=== PATIENT | male | born 1955 | race Hispanic/Latino ===

== ENCOUNTER → 2018-01-21 | Outpatient (CLI) | payer OTHER ==
[~2018-01-21] VITALS: Ht 160 cm; Wt 77.1 kg
[~2018-01-21] MED LIST: AEC81 PO; ATOR10 PO; HYDR-3705 PO; LISI-617 PO; METF-444 PO; RANI150T7 PO; REGADENOSON 0.4 MG/5 ML PF SYG IVP SCH
== END | disposition home or self-care (01) ==
LOC: SHCH 07:56
PROVIDERS: ATTEND Internal Medicine Cardiovascular Disease
DX: R94.31 Abnormal electrocardiogram [ECG] [EKG] (principal); I10 Essential (primary) hypertension
CPT/HCPCS: 78452; 93017; 96374; A9500 ×2; J2785

== ENCOUNTER 2018-09-24 13:47 | Emergency (ER) | payer OTHER ==
[~2018-09-24 13:47] MED LIST changes: -REGADENOSON 0.4 MG/5 ML PF SYG IVP SCH
[2018-09-24] MEDS ORDERED: LIDOCAINE HCL 1% 20 ML VIAL ONE (14:03)
[2018-09-24] MEDS ORDERED: TETANUS/DIPHTHERIA TOXOID [ADULT] 0.5 ML VIAL IM ONE (14:04)
== END 2018-09-24 15:20 | disposition home or self-care (01) ==
LOC: EDH 13:47
DX: S61.511A Laceration without foreign body of right wrist, initial encounter (principal); E11.9 Type 2 diabetes mellitus without complications; E78.5 Hyperlipidemia, unspecified; I10 Essential (primary) hypertension; Z88.8 Allergy status to other drugs, medicaments and biological substances; W26.8XXA Contact with other sharp object(s), not elsewhere classified, initial encounter; Y93.89 Activity, other specified; Y92.89 Other specified places as the place of occurrence of the external cause; Y99.8 Other external cause status
CPT/HCPCS: 12032; 73130; 90471; 90714

== ENCOUNTER 2018-10-04 10:15 | Emergency (ER) | payer OTHER | END 2018-10-04 10:38 | disposition home or self-care (01) | LOC: EDH 10:15 | DX: S61.411D Laceration without foreign body of right hand, subsequent encounter (principal); E11.9 Type 2 diabetes mellitus without complications; E78.5 Hyperlipidemia, unspecified; I10 Essential (primary) hypertension; Z72.0 Tobacco use; Z88.8 Allergy status to other drugs, medicaments and biological substances; X58.XXXD Exposure to other specified factors, subsequent encounter | CPT/HCPCS: 99281 ==

== ENCOUNTER → 2019-10-06 | Outpatient (CLI) | payer OTHER | END | disposition home or self-care (01) | LOC: RAH 14:53 | PROVIDERS: ATTEND Internal Medicine Hematology & Oncology | DX: R22.1 Localized swelling, mass and lump, neck (principal) | CPT/HCPCS: 76536 ==

== ENCOUNTER 2020-03-12 17:28 | Emergency (ER) | payer OTHER ==
[2020-03-12 18:39] LABS: BASOPHILS % (AUTO) 0.4 % (0.0-5.0); EOSINOPHILS % (AUTO) 3.2 % (0.0-8.0); HEMATOCRIT 49.1 % (42-54); LYMPHOCYTES % (AUTO) 15.1 % (21.0-51.0); MEAN CORPUSCULAR HEMOGLOBIN 30.4 pg (27.0-33.0); MEAN CORPUSCULAR HGB CONC 34.4 g/dL (32.0-36.0); MEAN CORPUSCULAR VOLUME 88.3 fL (79-99); MONOCYTES % (AUTO) 5.1 % (3.0-13.0); NEUTROPHILS % (AUTO) 75.8 % (40.0-77.0); PLATELET COUNT (AUTO) 313 K/uL (130-400); RED BLOOD CELL COUNT(AUTO) 5.56 MIL/uL (4.50-6.20); RED CELL DISTRIBUTION WIDTH 12.5 % (11.0-15.5); WHITE BLOOD COUNT (AUTO) 10.1 K/uL (4.8-10.8)
[2020-03-12] MEDS ORDERED: DiphenhydrAMINE HCL 50 MG/ML VIAL ONE (18:48)
[2020-03-12] MEDS ORDERED: FAMOTIDINE/PF 20 MG/2 ML VIAL IV ONE (18:49)
[2020-03-12 18:50] LABS: CREATININE 1.2 mg/dL (0.5-1.5); POTASSIUM 3.5 mmol/L (3.5-5.1)
[2020-03-12 18:54] LABS: BILIRUBIN,TOTAL 0.3 mg/dL (0.2-1.0); TOTAL PROTEIN, SERUM 7.8 g/dL (6.0-8.3)
[2020-03-12] MEDS ORDERED: PREDNISONE 20 MG TABLET ONE (19:47)
== END 2020-03-12 20:02 | disposition home or self-care (01) ==
LOC: EDH 17:28
DX: L29.8 Other pruritus (principal); I10 Essential (primary) hypertension; E11.9 Type 2 diabetes mellitus without complications; E78.5 Hyperlipidemia, unspecified; Z88.8 Allergy status to other drugs, medicaments and biological substances; Z72.0 Tobacco use
CPT/HCPCS: 36415; 80053; 82550; 84484; 85025; 93005; 96374; 96375; 99284; J1200; J3490

== ENCOUNTER 2024-03-25 13:56 | Emergency (ER) | payer OTHER ==
[~2024-03-25] VITALS: Ht 157.5 cm; Wt 75.7 kg
[~2024-03-25 13:56] MED LIST changes: -LISI-617 PO; +LISI5TAB21 PO
[2024-03-25] MEDS: HYDROcodone/acetaMINOPHEN 10/325 MG TAB PO ONE (14:53)
[2024-03-25] MEDS: morPHINE 2 MG SYG IM ONE (16:23)
[2024-03-25 16:29] VITALS: TEMP 98
--- NOTE | 2024-03-25 17:36 | ERN ---
General Chief Complaint: Rib Pain Stated Complaint: LEFT RIB PAIN Time Seen by MD: 14:34 Time Seen by Midlevel: 14:34 Source: patient History of Present Illness Initial Comments Patient is a 68-year-old male with no significant past medical history presenting with left-sided chest wall pain after he fell and landed on tree. Patient states he was on a ladder three steps up cutting some branches when the branches made him uneasy and fell onto the branch of a tree hitting the left si de of his chest. Denies any loss of consciousness or head injury. Patient states he was able to continue working however this morning he woke up with a significant amount of pain. The pain is worse with movement of the upper torso. Denies any shortness of breath or any other symptoms at this time. Allergies: Coded Allergies: naproxen (Unverified Allergy, Unknown, 12/20/13) Home Meds Reported Medications Metformin HCl (Metformin HCl) 500 Mg Tablet, 500 MG PO BIDLUNCHDINNER, TAB 12/26/13 Hydrocodone/Acetaminophen (Vicodin 5-300 mg Tablet) 1 Each Tablet, 1 EACH PO Q8H PRN for PAIN, TAB 12/26/13 Lisinopril (Lisinopril) 5 Mg Tablet, 5 MG PO AM, TAB 12/20/13 Atorvastatin Calcium (LIPITOR) 20 Mg Tablet, 20 MG PO HS, TAB 12/20/13 Aspirin (ASPIRIN 81 MG ECTAB) 81 Mg Tablet.dr, 81 MG PO AM, TAB 12/20/13 Ranitidine HCl (Ranitidine HCl) 150 Mg Tablet, 150 MG PO AM, TAB 12/20/13 Past Medical History Past Medical History: Diabetes-Type II, High Cholesterol, Hypertension, TIA Past Surgical History: Other Surgical History Other: BACK SX R/T CA, RT KIDNEY TUMOR ROS Dictation CONSTITUTIONAL: Negative except for HPI HEAD/FACE: Negative except for HPI EENT: Negative except for HPI RESPIRATORY: Negative except for HPI GASTROINTESTINAL/ABDOMINAL: Negative except for HPI GENITOURINARY: Negative except for HPI MUSCULOSKELETAL: Negative except for HPI INTEGUMENTARY: Negative except for HPI NEUROLOGICAL/PSYCH: Negative except for HPI HEMATOLOGIC/LYMPHATIC: Negative except for HPI All Systems Negative, Except as noted above. 13 point review of systems assessed and all negative except for above. Physical Exam Physical Exam Dictation PHYSICAL EXAM: GENERAL: alert,, awake oriented x 3 HEENT: EOMI, Sclera non icteric, moist mucosa NECK: Supple, no JVD, trachea midline LUNGS: Clear breath sounds bilaterally. No wheezes HEART: Regular rate and rhythm. Normal S1 and S2, without murmurs ABD: Abdomen soft, nontender. Bowel sounds present MSK: Tenderness over the left lateral chest wall, pain is reproducible with movement and palpation NEURO: Alert and oriented to person, follows commands MDM MDM: Patient is a 68-year-old male with no significant past medical history presenting with left-sided chest wall pain after he fell and landed on tree. Patient states he was on a ladder three steps up cutting some branches when the branches made him uneasy and fell onto the branch of a tree hitting the left side of his chest. Denies any loss of consciousness or head injury. Patient states he was able to continue working however this morning he woke up with a significant amount of pain. The pain is worse with movement of the upper torso. Denies any shortness of breath or any other symptoms at this time. On physical examination patient is in no acute respiratory distress. O2 saturation is 98% on room air. Vital signs are stable. He has left lateral chest wall tenderness that is reproducible with movement and palpation. Chest x-ray with bilateral rib views was obtained and does not show any acute fracture. There was no evidence of a pneumothorax. Patient was given pain control in the emergency department and will be discharged home with supportive management. Differential diagnosis: Pneumothorax, rib fracture, chest wall contusion There are no social concerns with this patient. Prescription drug management Prescriptions will include: Tylenol and Motrin Medical management and examination interpretation discussions were had by me with other qualified healthcare professionals as indicated for the patient's care. ED Course Orders Procedure Category Date Status Time Hydrocodone/Apap PHA 03/25/24 Complete Tab ([place] 10) 15:00 Ribs Bilat [employer] Pa RAD 03/25/24 Resulted Chest 4+Vws 14:35 Morphine 2mg Syg PHA 03/25/24 Complete (Morphine 2mg Syg) 16:30 Current Medications Medications (Trade) Dose Ordered Sig/Meka Route PRN Reason Start Time Stop Time Status Last Admin Dose Admin Acetaminophen/ Hydrocodone Bitart (NORco 10) 1 tab ONCE ONCE PO 03/25/24 15:00 03/25/24 15:01 DC 03/25/24 14:53 Morphine Sulfate (morPHINE 2MG SYG) 2 mg ONCE ONCE IM 03/25/24 16:30 03/25/24 16:31 DC 03/25/24 16:23 Vital Signs Date Time Temp Pulse Resp B/P (MAP) Pulse Ox O2 Delivery O2 Flow Rate FiO2 03/25/24 17:46 78 20 131/74 98 Room Air* 0 21 03/25/24 16:29 98.1 71 18 141/80 98 Room Air* 0 03/25/24 14:37 98.8 78 20 143/83 98 Room Air* 0 03/25/24 13:58 97.9 85 16 136/90 98 Room Air 0 DX & DISP Disposition: Discharge Departure Impression: Primary Impression: Chest wall contusion Condition: Stable Additional Instructions: Your chest x-ray does not show any evidence of a fracture. Please follow up with your primary care doctor in 2-3 days for repeat evaluation. You may take Tylenol and Motrin for pain. Referrals: TRUPTI MEDRANO M.D. (PCP) Time of Disposition: 18:00 I have reviewed the case, and I agree with, Diagnosis and Plan ATTESTATION BY PHYSICIAN I PERFORMED THE SUBSTANTIVE PORTION OF THE VISIT. I HAVE REVIEWED AND PERSONALLY MADE AND APPROVED THE MANAGEMENT PLAN THAT IS DOCUMENTED IN THE NOTE BY MYSELF FOR THE A PP. I ACKNOWLEDGED FOR RESPONSIBILITY FOR THE PATIENT'S MANAGEMENT PLAN. LORE PETTY Mar 25, 2024 17:36 CRIS FENG NP Mar 25, 2024 18:10 GIOVANNI OSBORNE MD Mar 26, 2024 06:27
[2024-03-25 17:46] VITALS: BP 131/74; PULSE 78; RESP 20; O2SAT 98
[2024-03-25] MEDS ORDERED: ACET-2079 PO ×2 (18:02→18:07)
--- NOTE | 2024-03-26 00:28 | HMCIMG ---
RIBS BILAT [employer] PA CHEST 4+VWS HISTORY: Pain COMPARISON: None TECHNIQUE: Frontal projection of the chest was obtained. 6 images of bilateral ribs were obtained. FINDINGS: Postop changes are seen of the thoracic spine. There is minimal dextroscoliosis. The heart is not enlarged. Gastric distention is seen. No acute pulmonary infiltrate is seen. There is no acute displaced fracture or dislocation. Degenerative changes are seen. IMPRESSION: 1. Findings as described above.
== END 2024-03-25 18:17 | disposition home or self-care (01) ==
LOC: EDH 13:56
DX: S20.212A Contusion of left front wall of thorax, initial encounter (principal); E11.9 Type 2 diabetes mellitus without complications; E78.00 Pure hypercholesterolemia, unspecified; I10 Essential (primary) hypertension; Z86.73 Personal history of transient ischemic attack (TIA), and cerebral infarction without residual deficits; Z88.6 Allergy status to analgesic agent; W18.39XA Other fall on same level, initial encounter; Y93.89 Activity, other specified; Y92.89 Other specified places as the place of occurrence of the external cause; Y99.8 Other external cause status
CPT/HCPCS: 99284; 71111; 96372; J2270